=== PATIENT | male | born 1945 | race Caucasian/White ===

== ENCOUNTER → 2017-04-12 | Outpatient (CLI) | payer BC ==
[~2017-04-12] MED LIST: ATOR80TA PO; BTLAI; BUPR-79 PO; CITA20TA4 PO; CYAN500T13 PO; FOLI1TAB7 PO; LEVO100T7 PO; LISI-461 PO; SULF500T36 PO
== END | disposition home or self-care (01) ==
LOC: C.LABSPEC 10:53
PROVIDERS: ATTEND Ophthalmology
DX: S05.31XA Ocular laceration without prolapse or loss of intraocular tissue, right eye, initial encounter (principal); X58.XXXA Exposure to other specified factors, initial encounter

== ENCOUNTER → 2017-04-16 | Day surgery (SDC) | payer BC ==
[2017-04-13 11:37] VITALS: Ht 182.9 cm; Wt 106.8 kg
[~2017-04-16] VITALS: Ht 182.9 cm; Wt 106.8 kg
[~2017-04-16] MED LIST changes: +ACETAMINOPHEN 325 MG TAB PO PRN; +ATROPINE SULFATE 0.1 MG/ML 5ML SYR IV PRN; +BRIMONIDINE TART 0.2% OP SOLN PER DROP CHARGE ONE; +BSS FLUSH ONE; +CEFAZOLIN SOD 1 GM VIAL ONE; +EpINEphrine INJ 1MG/ML AMP 1 MG/ML AMP ONE; +LACTATED RINGER'S 1000ML 1,000 ML IV SCH; +LACTATED RINGER'S 1000ML 500 ML IV ONE; +LIDO 2%/EPINEPHRINE 1:100000 20 ML VIAL INFIL ONE; +LIDOCAINE 3.5% OPH GEL PER APPLICATION CHARGE OPR SCH; +LIDOCAINE 4% OP SOLN DROP CHARGE ONE; +LIDOCAINE 4% OP SOLN DROP CHARGE OPR SCH; +LIDOCAINE HCL 1% MPF 2 ML VIAL ONE; +MIDAZOLAM HCL 1 MG/ML 2ML VIAL ONE; +MOXIFLOXACIN OPH SOLN PER DROP CHARGE ONE; +MOXIFLOXACIN OPH SOLN PER DROP CHARGE OPR SCH; +PATIENT'S ALLERGY INFO NEEDS ENTERED SCH; +POVIDONE-IODINE OP SOLN 30 ML BTL ONE; +PROPARACAINE 0.5% OP SOLN PER DROP CHARGE OPR SCH; +TISSEEL FIBRIN SEALANT 2ML TOP ONE; +TOBRAMYCIN/DEXAMETHASONE OPH OINT PER APPLN CHARGE ONE
[2017-04-16] MEDS: MOXIFLOXACIN OPH SOLN PER DROP CHARGE OPR SCH ×3 (12:16→12:36)
--- NOTE | 2017-04-16 12:20 | History & Physical Bridge - [place] ---
H&P Re-Evaluation Bridge Note: I have examined the patient, reviewed the History & Physical and in the interval since the performance of the History & Physical I have noted the following changes of clinical significance: No changes noted
[2017-04-16 14:02] VITALS: TEMP 36.7
--- NOTE | 2017-04-16 14:02 | Discharge Instructions-SurgCtr ---
Discharge Instructions Date of Service Apr 16, 2017. Visit Reason for Visit: Right Eye Ocular Laceration Without Prolapse Or Discharge Discharge Diagnosis / Problem: lacerated conjunctiva/ tenons/ sclera right eye without prolapse of intraoc Discharge Goals Goal(s): Decrease discomfort, Improve function Activity Recommendations Activity Limitations: per Instructions/Follow-up section Lifting Limitations: no more than 5 pounds Anesthesia . Post Anesthesia Instructions: If you have had General Anesthesia or IV Sedation: * Do not drive today. * Resume driving when surgeon permits. * Do not make important decisions or sign legal documents today. * Call surgeon for: 1. Temperature elevations greater than 101 degrees F. 2. Uncontrollable pain. 3. Excessive bleeding. 4. Persistent nausea and vomiting. 5. Medication intolerance (nausea, vomiting or rash). * For nausea and vomiting use only clear liquids such as: tea, soda, bouillon until nausea subsides, then gradually increase diet as tolerated. * If you have any concerns or questions, call your surgeon's office. If physician is unavailable and it is an emergency, call 911 or go to the nearest emergency room. . Instructions / Follow-Up Instructions / Follow-Up ACTIVITY RECOMMENDATIONS: * Light activities * You may walk outside, read, watch television. * Mild irritation and blurred vision are common for the first few days, redness around the white part of the eye is common. MEDICATIONS: Resume previous medications unless instructed otherwise by your surgeon. SPECIAL CARE INSTRUCTIONS: * If any problems or concerns, please call Dr. Sanchez's office at . * Keep plastic shield taped over eye to sleep at night. * Keep plastic shield/ patch on until office visit the following day. FOLLOW UP VISIT: Follow-up with Dr. Sanchez in the [place] office as scheduled. If not already scheduled, please call the office at . Diet Recommendations Home Diet: resume previous diet Procedures Procedures Performed: Right Eye Conjunctival Biopsy With Amniotic Membrane Graft Pending Studies Studies pending at discharge: yes List of pending studies: tissue biopsy Medical Emergencies . Who to Call and When: Medical Emergencies: If at any time you feel your situation is an emergency, please call 911 immediately. . Non-Emergent Contact Non-Emergency issues call your: [facility] [employer] . . "Provider Documentation" section prepared by Saul Sanchez. .
--- NOTE | 2017-04-16 14:10 | Anesthesia Progress Nt - [facility] ---
Anesthesia Post Op Note Date & Time Apr 16, 2017 at 14:10 Vital Signs Pain Intensity: 0 Vital Signs Past 12 Hours Date Time Temp Pulse Resp B/P (MAP) Pulse Ox O2 Delivery O2 Flow Rate FiO2 04/16/17 14:02 36.7 70 16 175/97 (123) 94 Room Air 04/16/17 12:05 37.0 84 18 143/81 (101) 96 Room Air Notes Mental Status: alert / awake / arousable, participated in evaluation Pt Amnestic to Procedure: Yes Nausea / Vomiting: adequately controlled Pain: adequately controlled Airway Patency, RR, SpO2: stable & adequate BP & HR: stable & adequate Hydration State: stable & adequate Anesthetic Complications: no major complications apparent
--- NOTE | 2017-04-16 14:12 | [facility] Operative Report ---
Operative Report Operative Date Apr 16, 2017. Pre-Operative Diagnosis Right eye conjunctival injury with granuloma and possible retained foreign body Post-Operative Diagnosis Right eye conjunctival injury with granuloma Procedure(s) Performed Right Eye Conjunctival Biopsy/ exploration of globe With Amniotic Membrane Graft right eye Surgeon Dr. Sanchez Connie Scratcher Surgeon(s) none Estimated Blood Loss less than 1cc Findings granuloma measuring about 11mm in length consisting of apparent conjunctiva/ tenons/ and sclera Specimens A.Right eye traumatic lesion consisting conjunctiva, tenons and sclera Drains none Anesthesia local with sedation Complication(s) None Disposition Recovery Room / PACU Implants none Indications traumatic injury with large mass of right eye Description of Procedure After informed consent was obtained in the holding area the patient was wheeled back to the operating room where cardiac monitoring leads and oxygen by nasal cannula was administered by Anesthesia. Gentle IV sedation was given, and the patient's right eye was prepped and draped in usual sterile fashion. A wire lid speculum was placed into the right eye and the operating microscope was swung into position. 2% lidocaine with epi was used to infiltrate the mass of the superior nasal right eye bulbar surface and the surrounding conjunctiva. Using 0.12 forceps and victor m scissors,the lesion was meticulously disected around and amputated from the eye. prior to amputation it was noted that the lesion partially consisted of superficial sclera nasally. The lesion was amputated from the eye with attempt made to leave behind the shelved sclera. The area of scleral injury was explored and was found not to penetrate the globe. a Single 8-0 vicryl suture was used to reapproximate the overlying sclera/ tenons/ and conjunctiva over the area of scleral injury. The resulting conjunctival defect was found to be 13mm by 4mm. A piece of amniotic membrane graft was measured for 15mm x 4mm and placed over the area of defect of the eye and glued down using tisseal glue. Once the graft was found to be secure, subconjunctival injections in the inferior fornix were given of ancef and solumederol. The wire lid speculum was then removed from the eye, vigamox was placed on the eye and the eye was patched and shielded. The patient tolerated the procedure well and was taken to the recovery area in stable condition. I attest that I was the surgeon to perform the procedure. I attest to the content of the Intraoperative Record and any orders documented therein. Any exceptions are noted below.
[2017-04-16 14:22] VITALS: BP 147/76; PULSE 68; O2SAT 94
== END | disposition home or self-care (01) ==
LOC: X.SURG 11:06
PROVIDERS: ATTEND Ophthalmology
DX: S05.01XA Injury of conjunctiva and corneal abrasion without foreign body, right eye, initial encounter (principal); H11.221 Conjunctival granuloma, right eye; W22.8XXA Striking against or struck by other objects, initial encounter; H10.89 Other conjunctivitis; I10 Essential (primary) hypertension; Z90.49 Acquired absence of other specified parts of digestive tract